=== PATIENT | female | born 1960 | race Caucasian/White ===

== ENCOUNTER 2019-02-08 05:41 | Day surgery (SDC) | payer OTHER ==
[2019-02-07 11:35] VITALS: BMI 22.4
[2019-02-08] MEDS ORDERED: Lidocaine 1% (PF) 30 ML VIAL ONE (06:31)
[2019-02-08 06:33] LABS: #Basophils 0.1 thou/uL (0.0-0.2); #Eosinphils 0.1 thou/uL (0.0-0.7); #Lymphocytes 2.7 thou/uL (1.20-3.40); #Monocytes 0.6 thou/uL (0.11-0.59); #Neutrophils 3.1 thou/uL (1.40-6.50); %Basophils 1.1 % (0.0-1.0); %Eosinophils 2.2 % (0.0-10.0); %Lymphocytes 40.7 % (21.0-51.0); %Monocytes 9.3 % (0.0-10.0); %Neutrophils 46.7 % (42.0-75.0); Mean Corpuscular HGB CONC 32.4 g/dL (32.0-36.0); Mean Corpuscular Hemoglobin 30.8 pg (27.0-31.0); Mean Corpuscular Volume 95.1 fL (78.0-98.0); Mean Platelet Volume 7.9 fL (7.4-10.4); Platelet Count 273 thou/uL (130-400); RBC Distribution Width 11.8 % (11.5-14.5); Red Blood Cell (RBC) Count 4.21 mill/uL (4.20-5.40); White Blood Cell (WBC) Count 6.7 thou/uL (4.8-10.8)
[2019-02-08 06:51] LABS: Anion Gap 13 mmol/L (10-20); BUN (Urea Nitrogen) 17 mg/dL (9.8-20.1); Calc. Creatinine Clearance 73 mL/min (70-130); Calcium 9.4 mg/dL (7.8-10.44); Carbon Dioxide 28 mmol/L (22-29); Chloride 106 mmol/L (98-107); Estimated GFR-MDRD 89; Glucose 97 mg/dL (70-105); Potassium 4.5 mmol/L (3.5-5.1); Sodium 142 mmol/L (136-145)
[2019-02-08] MEDS ORDERED: Midazolam HCl 2 mg/2 ml Vial ONE (07:48)
[2019-02-08] MEDS ORDERED: Fentanyl 100 MCG/2 ML VIAL ONE (07:49)
--- NOTE | 2019-02-08 08:51 | OP ---
DATE OF PROCEDURE: 02/08/2019 PREOPERATIVE DIAGNOSIS: Right trigger thumb. POSTOPERATIVE DIAGNOSIS: Right trigger thumb. PROCEDURE PERFORMED: Open trigger thumb release. APPLICATION DEVELOPER: None. ESTIMATED BLOOD LOSS: Minimal. COMPLICATIONS: None. ANESTHESIA: She had a TIVA with local. DISPOSITION: She went to Day Stay in stable condition. INDICATIONS: This is a 58-year-old female, who comes in complaining of active thumb triggering, which caused her significant pain and discomfort. DESCRIPTION OF PROCEDURE: After all appropriate consent forms were explained and signed, she was taken back to the operating room and at this time was given IV sedation. Tourniquet was placed on the right arm and the right arm was prepped and draped in standard surgical fashion. The incision line was drawn out and infiltrated with plain lidocaine. Limb was exsanguinated and the tourniquet was taken to 250 mmHg. Using loupe magnification, a 15 blade was used to incise longitudinally over top of the A1 jennifer. We were careful to only go through the skin. Scissor dissection was then used to expose the underlying A1 jennifer. The radial digital nerve was easily visible and was put behind the retractor at this time. Once we were able to isolate the jennifer, a combination of a new 15 blade as well as surgical scissors were used to transect the A1 jennifer longitudinally and to remove a small fragment of this, so that it could not grow together. The tendon was then pulled out into the wound to inspect it and was found to be in excellent condition. We then thoroughly irrigated and dried. We then infiltrated some more plain lidocaine for postop pain relief, followed by using a couple of nylon sutures to close the skin incision. A sterile soft tissue dressing was then applied as well as Coban. The tourniquet was let down. Thumb pinked up nicely. She was then awakened and taken to Day Stay. All counts were correct at the end of the case and she did receive preoperative IV antibiotics. Job ID: [id number] [facility]
[2019-02-08] MEDS ORDERED: PROPOFOL 200 MG/20 ML VIAL ONE (10:50)
--- NOTE | 2019-02-08 14:19 | EKG ---
Test Reason : PREOP Blood Pressure : / mmHG Vent. Rate : 074 BPM Atrial Rate : 074 BPM P-R Int : 240 ms QRS Dur : 086 ms QT Int : 384 ms P-R-T Axes : 082 049 050 degrees QTc Int : 426 ms Sinus rhythm with sinus arrhythmia with 1st degree A-V block Otherwise normal ECG No previous ECGs available Confirmed by DR. Nitish SILVESTRE ([id number]) on 02/08/2019 2:18:53 PM Referred By: ARACELIS Confirmed By:DR. Nitish SILVESTRE
== END 2019-02-08 08:50 | disposition home or self-care (01) ==
LOC: SDC 05:41
PROVIDERS: ATTEND Orthopaedic Surgery
PROC: 0LN70ZZ Release Right Hand Tendon, Open Approach (ICD-10-PCS; principal; 2019-02-08)
DX: M65.311 Trigger thumb, right thumb (principal); M19.90 Unspecified osteoarthritis, unspecified site; Z87.891 Personal history of nicotine dependence; Z88.2 Allergy status to sulfonamides
CPT/HCPCS: 80048; 85025; 93005; 93010; J0690; J2001; J2250; J2704; J3010